=== PATIENT | female | born 1940 | race Caucasian/White ===

== ENCOUNTER → 2016-05-30 | Outpatient (CLI) | payer MEDICARE, MEDICAID ==
[~2016-05-30] MED LIST: ALTACE5 MG PO; ASCORBIC ACID500 MG PO; ASPIRIN LO-DOSE81 MG PO; BENTYL10 MG PO; CALCIUM GLUC500 MG PO; CYCLOBENZAPRINE5 MG PO; FENOFIBRATE145 MG PO; FEOSOL325 MG PO; IMDUR30 MG PO; IMODIUM2 MG PO; LASIX40 MG PO; LEVOTHROID (SY50 MCG PO; LEXAPRO20 MG PO; LOMOTIL 2.5-0.1 EACH PO; LOPROX TOP; NITROSTAT0.4 MG SL; NORCO 5-325 MG1 TAB PO; PEPTO BISMOL LIQ1 ML PO; PLAVIX75 MG PO; PRAVACHOL80 MG PO; REFRESH LIQUIGE30 ML OPHTH; ROBITUSSIN100 MG/5 M PO; SALINE NASAL SP88 ML NOSE; SYSTANE BALANCE10 ML OPHTH; TOPROL XL25 MG PO; TYLENOL325 MG PO; WELCHOL 625MG625 MG PO; ZOLOFT50 MG PO; ZYRTEC10 MG PO; [UNRECOGNIZED DRUG - OTHER]; [UNRECOGNIZED DRUG - OTHER] TOP
== END | disposition disaster alternative care site (69) ==
LOC: LGSMG 16:10
DX: Z00.00 Encounter for general adult medical examination without abnormal findings (principal); N18.4 Chronic kidney disease, stage 4 (severe)